=== PATIENT | male | born 1970 | race Caucasian/White ===

== ENCOUNTER → 2024-03-07 06:24 | Day surgery (SDC) | payer BC, SELFPAY | LOC: GI 06:24 | PROVIDERS: ATTENDING PHYSICIAN Surgery | DX: Z12.11 Encounter for screening for malignant neoplasm of colon (principal); K64.9 Unspecified hemorrhoids | CPT/HCPCS: 46221; G0121 ==

== ENCOUNTER → 2024-09-25 06:21 | Day surgery (SDC) | payer BC, SELFPAY ==
[2024-09-08 08:54] LABS: Hematocrit 45.4 % (39.0-52.0); Hemoglobin 15.1 g/dL (13.0-18.0); Mean Corp Hgb Conc. 33.3 g/dL (33.0-37.0); Mean Corpuscular Hgb 28.1 pg (27.0-31.0); Mean Corpuscular Volume 84.5 fL (80.0-94.0); Mean Platelet Volume 9.4 fL (7.4-10.4); Platelet Count 252 10^3/uL (130-400); Red Blood Cell Count 5.37 10^6/uL (4.70-6.10); Red Cell Dist. Width 13.8 % (11.5-14.5); White Blood Cell Count 6.4 10^3/uL (4.8-10.8)
[2024-09-08 09:30] VITALS: BMI 36.3
[2024-09-08 10:50] LABS: Blood Urea Nitrogen 17 mg/dl (9-20); Calcium 9.4 mg/dl (8.4-10.2); Carbon Dioxide 29 mmol/L (22-30); Chloride 104 mmol/L (98-107); Estimated Creatinine Clearance 120 ml/min; Glucose 82 mg/dl (70-99); Sodium 144 mmol/L (135-145); eGFR > 60.00
[2024-09-25] VITALS (9 sets, daily range): BP systolic 92–137; BP diastolic 51–81; BMI 36.3
[2024-09-25] MEDS: TYLENOL 1000 MG PO (12:51)
[2024-09-25] MEDS: VANCOCIN 530 MG IV (13:08)
--- NOTE | 2024-09-25 13:57 | HP.FOC2 ---
Focused History & Physical
Chief Complaint
HPI:
Chief Complaint: Umbilical hernia
HPI / Indication for Planned Procedure: Patient is a 54-year-old male recently seen in outpatient surgical evaluation secondary to a longstanding history of swelling in the region of his umbilicus. It has been present for 5 years or even longer and
progressively increased in size to the point that is now always protuberant. He has an awareness of the hernia being present and occasional ache in the area. No symptoms suggestive of intermittent incarceration of there is obstruction or
strangulation. Presents today for scheduled operative correction.
Relevant Past Medical History: Other (Hypertension, PACs, prior history of atrial fibrillation now status post cardiac ablation, vasovagal with near syncope)
Relevant Social History: Negative
Relevant Family History: Negative
Relevant Past Surgical History: Positive for (Right tib-fib fracture repair, cardiac ablation)
Review of Systems
Review of Pertinent Systems: All Systems Negative
Medication
See Medication form for detailed medications: Yes
Medication List (including Herbals & OTC):
metoprolol succinate 25 mg tablet,extended release 24 hr 12.5 mg PO BID 06/23/23
aspirin 81 mg tablet,delayed release 81 mg PO DAILY 09/13/24
Medications Reviewed: Yes
Allergies and Reactions
Patient has Allergies: Yes
Noted Allergies and Reactions:
Allergy/AdvReac Type Severity Reaction Status Date / Time
Penicillins Allergy years ago Verified 09/25/24 12:49
Pertinent Physical Exam
All Other Systems: Negative
Head/Neck: Normal
Lungs: Normal
Heart: Normal
Abdomen: Other (Soft, chronically incarcerated umbilical hernia, did not attempt to reduce. Fascial defect likely approximately 3 cm.)
Extremities: Normal
Neurological: Normal
Diagnosis / Assessment
54-year-old male presenting for scheduled operative correction symptomatic umbilical hernia
Plan / Procedure
robotic assisted laparoscopic repair umbilical hernia with mesh
Anesthesia/Sedation to be done by Anesthesia Provider: Yes
--- NOTE | 2024-09-25 14:00 | W.SUR.PREOP ---
Pre-Operative Surgical Note
-
I have examined this patient prior to the performance of the scheduled procedure.
The patient's condition is unchanged from the time of the current History and
Physical and the patient is able to undergo the scheduled procedure.
--- NOTE | 2024-09-25 17:07 | W.IMMPOSTOP ---
Addendum entered and electronically signed by Og Holly MD 09/25/24 17:22:
#[id number]
Original Note:
Surgical Immed Post Op Note
-
Primary Surgeon: Elayne
Assisting Surgeon: Rashida Pereira PA-C
Pre-op Diagnosis: Umbilical hernia
Post-op Diagnosis: Chronically incarcerated umbilical hernia; 3 cm
Procedure Performed: Robotic assisted laparoscopic repair umbilical hernia with mesh; 15 cm x [address]
Anesthesia Type: GETA +0.25% Marcaine
Specimen / Cultures: None
Estimated Blood Loss: 8 mL
Complications: None immediate
Operative Findings: Chronically incarcerated umbilical hernia containing omentum but without strangulation. Omental contents reduced. Transabdominal preperitoneal repair however peritoneal lining underlying rectus muscle particularly attenuated
therefore underlay coated mesh utilized for repair -Ventralight ST 15 cm x 10 cm. Fascial defect closed with 0 PDS STRATAFIX spiral. Mesh sutured to the linea alba and posterior sheath with numerous interrupted 2-0 Vicryl circumferentially and
centrally. Peritoneal flap closed with 2-0 Monocryl STRATAFIX spiral suture with vast majority of mesh having peritoneal coverage.
The assistance of Rashida Pereira PA-C was required due to the complexity of the procedure. During the procedure Rashida Pereira PA-C assisted with port placement, robotic instrumentation and suture material exchanges, and closure of the surgical incision
sites. I was present for the entirety of the operative procedure.
[2024-09-25] MEDS: DILAUDID 0.25 MG IV (17:26)
== END | disposition home or self-care (01) ==
LOC: SDS 06:21
PROVIDERS: ATTENDING PHYSICIAN Surgery; FAMILY PHYSICIAN Family Medicine
DX: K42.0 Umbilical hernia with obstruction, without gangrene (principal)
CPT/HCPCS: 49594; 36415; 80048; 85027; C1713

== ENCOUNTER 2024-09-30 10:48 | Emergency (ER) | payer BC, SELFPAY ==
[2024-09-30 10:50] VITALS: BP 128/89
--- NOTE | 2024-09-30 11:30 | ED.GENMED ---
History of Present Illness
General
Chief Complaint: Post Operative Problem(s)
Source: patient
Exam Limitations: none
Time Seen by Provider: 09/30/24 11:13
Nursing documentation reviewed up to this point in time: agreed with
History of Present Illness
History of Present Illness:
pt is a 54 y/o M with h/o afib,
s/p umbilical hernia repair 09/25/[address] frye
here with rash on his abdomen around his incision sites
pt says he woke up POD #1 and had small dots on his abdomen and a little pink around the umbilical incision and his LLQ incision; this was faint pink and he thought it was from the dressing
he removed the dressing
it has become very red, itchy around each incision which was glued with skin glue.
pt has never had any problem with tape or adhesives before
he called the education reviewer surgeon last night who prescribed bactrim and he took 1 dose yesterday and 1 dose today
pt says this morning he noticed some blistering within the rednesss around his umbilical incision and extension of the redness drawn around the line
pt has no pain, nausea, vomiting, diarrhea, fever/chills, oral lesions, genital lesions
Past History
Past History
ED Past Medical History: Arrthythmia and HTN
ED Past Surgical History: None
Social History
Tobacco: Non-smoker
Alcohol: Occasional
Drug: None
Personal:
Living: with family
Family History
Family History: Other (Father with hypertension, mother with diabetes)
Review of Systems
Review of Systems
Allergies reviewed?: Yes
All Other Systems: Not applicable
Phy Exam
Physical Exam
Physical Exam:
GENERAL: Alert , in no apparent distress
EYE: pupils equal and reactive
NECK: Supple
ENT: o/p clr, mmm.
CARDIAC: Regular rate and rhythm .
LUNGS: Clear breath sounds bilaterally, no acute respiratory distress, no wheezes/rales/rhonchi
ABDOMEN: Soft, without focal tenderness, no r/g, no cvat, normal bowel sounds
NEUROLOGICAL: Alert and oriented, no focal neuro deficits
SKIN: Warm and dry,
pt has an umbilical incision and 4 L sided incisions that are closed, with skin glue; surrounding the umbilical incisiont there is a 5 cm area of square shaped erythema, fairly red; with 1 bullae/blister in the lower margin; the other 4 incisions
have minimal 1-2 cm surrounding eryhthema, again very erythematous
and he has erythematous papules all over scattered his abdomen
no other rash on arms/legs
MUSCULOSKELETAL: No edema, well perfused. neg gustavo's sign
PSYCH: Normal and appropriate interaction.
Course
Orders/Labs/Results
Orders:
Orders
09/30/24 11:33
Complete Blood Count/With Diff Urgent
Comprehensive Metabolic Panel Urgent
Diphenhydramine [Benadryl] 50 mg PO NOW STA
09/30/24 11:36
Diphenhydramine [Benadryl] 50 mg IV NOW STA
09/30/24 12:43
Prednisone [Deltasone] 50 mg PO NOW STA
Abnormal Lab Results
09/30/24
11:33
Absolute Monos (auto) 0.8 H 10^3/uL
(0.1-0.6)
Monocytes % 10.9 H %
(1.7-9.3)
BUN 22 H mg/dl
(9-20)
09/30/24 11:33
09/30/24 11:33
Vital Signs
Initial and Last Documented VS:
Initial Vital Signs
Temp Pulse Resp BP Pulse Ox
98.1 F 88 22 128/89 98
09/30/24 10:50 09/30/24 10:50 09/30/24 10:50 09/30/24 10:50 09/30/24 10:50
Last Documented Vital Signs
Temp Pulse Resp BP Pulse Ox
98.2 F 73 18 148/89 98
09/30/24 11:33 09/30/24 11:33 09/30/24 11:33 09/30/24 11:33 09/30/24 11:33
MDM/Problems Addressed
Differential Diagnosis Includes:
contact dermatitis, allergic reaction, less likely serum sickness, SJS
MDM/Problems Addressed:
54 y/o M s/p umbilical hernia repair a fe wdyas ago
started the following day with mild erythema around the incision sites specifically umbilical arlen papular rash on his abdomen that was itchy
he presumed from shaving his abdomen hair
the itchiness and redness have worsened
he started abx yesterday bactrim and had 2 doses
but the rash was already present prior ot the bactrim
no fever
no pain
well appearing
afebrile
papular erythematous rash to abdomen no where else
and then around each insision he has marked erythematous skin, maximum 5 cm around the umcilical inciison; the others much smaller
certainly looks like allergy probqaboyl to adhesive glue?
d/w surgery, sent pictures
dr. leo agreed
recommended steroids, benadryl
will continue abx
considered changing to keflex but pt doesn't want to chance pcn allergy
wbc normal
return precautions.
*Critical Care Note
Total Time (30-74mins, 75-104mins- exclusive of procedures): Not Applicable
ED Attending Note
-
Portions of this chart may have been created with voice recognition software.� Occasional wrong word or��sound alike� substitutions may have occurred due to the inherent limitations of voice recognition software.
Discharge Plan
Departure
Patient Disposition: Home (Routine Discharge)
Date of Disposition: 09/30/24
Time of Disposition: 13:09
Patient with high blood pressure during this ER visit?: No
Condition: Fair
Discharge Problem:
Contact dermatitis
Instructions: Dermatitis ( Contact )
Prescriptions:
New
prednisone 10 mg Tablet
See Rx Instructions .ROUTE .COMPLEX Qty: 30 0RF
Rx Instructions:
Take By Mouth:
40 mg daily x3 days, 30 mg daily x3 days,
20 mg daily x3 days, 10 mg daily x3 days.
No Action
metoprolol succinate 25 mg Tablet Extended Release 24 Hr
12.5 mg PO BID
aspirin 81 mg Tablet,Delayed Release (Dr/Ec)
81 mg PO DAILY
acetaminophen [Tylenol Extra Strength] 500 mg tablet
1,000 mg PO Q6HPRN PRN (Reason: mild pain) Qty: 1 0RF
ibuprofen 200 mg tablet
400 mg PO Q6HPRN PRN (Reason: moderate pain) Qty: 1 0RF
polyethylene glycol 3350 [Miralax] 17 gram/dose powder
4 g PO DAILY PRN (Reason: Constipation) Qty: 119 0RF
Rx Instructions:
start a laxative such as MIRALAX on day 2 after surgery if no bowel movement yet as long as no nausea/vomiting and passing gas
oxycodone 5 mg tablet
5 mg PO Q4HPRN PRN (Reason: breakthrough/severe pain) Qty: 10 0RF
Referrals:
Rafa Braden DO [Family Provider] - Follow up in 2-3 days
Activity Restrictions/Additional Instructions:
THE REDNESS ON YOUR ABDOMEN APPEARS LIKE AN ALLERGIC REACTION
I SPOKE WITH DR. LEO RACK PUSHER FOR DR. FRYE WHO AGREED
LETS HAVE YOU STOP THE BACTRIM AND START KEFLEX INSTEAD 4 TIMES A DAY JUST IN [facility] THERE IS A COMPONENT OF INFECTION.
BUT ALSO TAKE PREDNISONE 40 MG ONCE A DAY FOR 3 DAYS THEN 30 MG ONCE A DAY FOR 3 DAYS THEN 20 MG ONCE DAY FOR 3 DAYS THEN 10 MG ONCE A DAY FOR 3 DAYS.
TAKE BENADRYL 50 MG 3 TIMES A DAY FOR 2 DAYS THEN ONLY NEEDED
WATCH THE REDNESS
IF IT IS WORSE THEN YOU NEED TO BE CHECKED
ALSO YOU SHOULD CALL DR. FRYE ON WEDNESDAY TO HAVE AN APPOINTMENT FOR THIS TO HAVE A CHECKUP OF THE REDNESS.
RETURN FOR: SEVERE WORSENING REDNESS, FEVER, PAIN, VOMITING, TROUBLE BREATHING OR ANY CONCERNS.
Interventions
Interventions:
*Risk Screen - Suicide Last Done: 09/30/24 10:50
*General Assessment Last Done: 09/30/24 10:50
*Neglect/Abuse Screening Last Done: 09/30/24 10:50
ED- Fall Risk Assessment Last Done: 09/30/24 13:54
*Nursing Disposition Last Done: 09/30/24 13:54
ED-Skin Assessment Last Done: 09/30/24 11:55
Discharge Date and Time
Discharge Date/Time: 09/30/24 13:54
Print Language: NEPALESE
[2024-09-30 11:33] VITALS: BP 148/89; BMI 36.1
[2024-09-30] MEDS: BENADRYL 50 MG IV (11:38)
[2024-09-30 11:55] LABS: % Basophils 0.5 % (0-2); % Eosinophils 3.3 % (0-6); % Immature Granulocytes 0.3 % (0-0.5); % Lymphocytes 31.5 % (20.5-51.1); % Monocytes 10.9 % (1.7-9.3); % Neutrophils 53.5 % (42.2-75.2); Absolute Eosinophils 0.3 10^3/uL (0-0.7); Absolute Lymphocytes 2.4 10^3/uL (1.2-3.4); Absolute Monocytes 0.8 10^3/uL (0.1-0.6); Absolute Neutrophils 4.1 10^3/uL (1.4-6.5); Hematocrit 44.9 % (39.0-52.0); Mean Corp Hgb Conc. 33.4 g/dL (33.0-37.0); Mean Corpuscular Hgb 27.8 pg (27.0-31.0); Mean Corpuscular Volume 83.1 fL (80.0-94.0); Mean Platelet Volume 8.8 fL (7.4-10.4); Nucleated Red Blood Cells % 0 % (-); Platelet Count 284 10^3/uL (130-400); Red Cell Dist. Width 13.5 % (11.5-14.5); White Blood Cell Count 7.6 10^3/uL (4.8-10.8)
[2024-09-30 12:10] LABS: ALT (SGPT) 21 U/L (0-50); AST (SGOT) 21 U/L (17-59); Albumin 4.3 g/dl (3.5-5.0); Alkaline Phosphatase 58 U/L (38-126); Blood Urea Nitrogen 22 mg/dl (9-20); Calcium 9.8 mg/dl (8.4-10.2); Carbon Dioxide 27 mmol/L (22-30); Chloride 103 mmol/L (98-107); Estimated Creatinine Clearance 98 ml/min; Glucose 98 mg/dl (70-99); Potassium 4.7 mmol/L (3.5-5.1); Sodium 142 mmol/L (135-145); Total Bilirubin 0.5 mg/dl (0.2-1.3); Total Protein 6.8 g/dl (6.3-8.2); eGFR > 60.00
[2024-09-30] MEDS: DELTASONE 50 MG PO (12:58)
== END 2024-09-30 13:54 | disposition home or self-care (01) ==
LOC: EMR 10:48
PROVIDERS: Physician Assistant; EMERGENCY PHYSICIAN Student in an Organized Health Care Education/Training Program; FAMILY PHYSICIAN Family Medicine
DX: L25.9 Unspecified contact dermatitis, unspecified cause (principal); I48.91 Unspecified atrial fibrillation; I10 Essential (primary) hypertension; Z82.49 Family history of ischemic heart disease and other diseases of the circulatory system; Z83.3 Family history of diabetes mellitus
CPT/HCPCS: 99283; 96374; 80053; 85025

== ENCOUNTER → 2025-04-27 06:44 | Outpatient (REF) | payer BC, SELFPAY | LOC: RAD 06:44 | PROVIDERS: ATTENDING PHYSICIAN Radiology Diagnostic Radiology; FAMILY PHYSICIAN Family Medicine; REFERRING PHYSICIAN Surgery | DX: Z01.818 Encounter for other preprocedural examination (principal) | CPT/HCPCS: 70030 ==

== ENCOUNTER → 2025-04-30 08:32 | Outpatient (REF) | payer BC, SELFPAY | LOC: MRI 3T 08:32 | PROVIDERS: ATTENDING PHYSICIAN Surgery; FAMILY PHYSICIAN Family Medicine | DX: K60.50 Anorectal fistula, unspecified (principal) | CPT/HCPCS: 72197; A9575 ==

== ENCOUNTER 2025-06-09 16:06 | Emergency (ER) | payer BC, SELFPAY ==
[2025-06-09 16:09] VITALS: BP 143/90
[2025-06-09 16:40] VITALS: BMI 35.9
--- NOTE | 2025-06-09 16:56 | ED.GENMED ---
History of Present Illness
General
Chief Complaint: Male Genito-Urinary Symptoms
Source: patient
Exam Limitations: none
Time Seen by Provider: 06/09/25 16:26
Nursing documentation reviewed up to this point in time: agreed with
History of Present Illness
History of Present Illness:
Patient is a 55-year-old male with past medical history of A-fib, cardioversion hypertension who presents to the ER complaining of left testicle pain and swelling for the the past 2 days. Denies any difficulty urinating. Denies any abdominal pain
or back pain. Denies any injury or lifting. No prior history of urologic issues other than a UTI.
Past History
Past History
ED Past Medical History: Arrthythmia and HTN
ED Past Surgical History: None
Social History
Tobacco: Non-smoker
Alcohol: Occasional
Drug: None
Personal:
Living: with family
Family History
Family History: Other (Father with hypertension, mother with diabetes)
Phy Exam
General Physical Exam
General Presentation: no apparent distress
General age: appears stated age
General Skin: warm
General Habitus: normal
General Mental: alert
General Hydration: appears well hydrated
Gastrointestinal Exam
Gastrointestinal Exam: non tender and soft
Genitourinary Exam Male
Exam Male: circumcised and other (Left testicle mildly swollen mildly tender no palpable inguinal hernia)
Neurological Exam
Neurological Exam: alert and oriented x3
Musculoskeletal Exam
Musculoskeletal Exam: full ROM
Course
Orders/Labs/Results
Orders:
Orders
06/09/25 16:27
US Scrotum Urgent
Comment:
Reason For Exam: left testicle swelling
06/09/25 17:02
UA Reflex to Culture [Urinalysis Reflex To Culture] Urgent
Date Specimen was Collected: 06/09/25
Time Specimen was Collected: 16:29
06/09/25 21:46
Ciprofloxacin HCl [Cipro] 500 mg PO NOW STA
Vital Signs
Initial and Last Documented VS:
Initial Vital Signs
Temp Pulse Resp BP Pulse Ox
97.6 F 68 18 143/90 100
06/09/25 16:09 06/09/25 16:09 06/09/25 16:09 06/09/25 16:09 06/09/25 16:09
Last Documented Vital Signs
Temp Pulse Resp BP Pulse Ox
97.6 F 61 18 138/76 100
06/09/25 16:09 06/09/25 21:25 06/09/25 16:09 06/09/25 21:25 06/09/25 17:01
MDM/Problems Addressed
Differential Diagnosis Includes:
Not limited to epididymitis, UTI hernia
MDM/Problems Addressed:
Patient is a 55 male who present with left-sided testicle pain and discomfort for the past several days no UTI symptoms. Patient on exam has very minimal tenderness very minimal swelling urine is negative. He denies any fevers he is afebrile.
Ultrasound testicle shows normal blood flow mild increased blood flow to the left epididymis suggestive of mild left-sided epididymitis. Small bilateral hydroceles. Case reviewed ED physician will treat with Cipro with urology follow up
*Radiology
Radiology exam reviewed: radiology read reviewed
*Pulse Oximetry
SaO2: 100
Oxygen Mode of Delivery: Room air
Patient hypoxic: no
*Critical Care Note
Total Time (30-74mins, 75-104mins- exclusive of procedures): Not Applicable
ED Attending Note
-
Portions of this chart may have been created with voice recognition software.� Occasional wrong word or��sound alike� substitutions may have occurred due to the inherent limitations of voice recognition software.
Discharge Plan
Departure
Patient Disposition: Home (Routine Discharge)
Date of Disposition: 06/09/25
Time of Disposition: 21:50
Patient with high blood pressure during this ER visit?: Yes
Condition: Fair
Covid-19: Not Applicable
Discharge Problem:
Acute epididymitis
Instructions: Epididymitis and orchitis, BLOOD PRESSURE
Prescriptions:
New
ciprofloxacin HCl [Cipro] 500 mg tablet
500 mg PO BID Qty: 20 0RF
No Action
metoprolol succinate 25 mg Tablet Extended Release 24 Hr
12.5 mg PO BID
aspirin 81 mg Tablet,Delayed Release (Dr/Ec)
81 mg PO DAILY
acetaminophen [Tylenol Extra Strength] 500 mg tablet
1,000 mg PO Q6HPRN PRN (Reason: mild pain) Qty: 1 0RF
ibuprofen 200 mg tablet
400 mg PO Q6HPRN PRN (Reason: moderate pain) Qty: 1 0RF
polyethylene glycol 3350 [Miralax] 17 gram/dose powder
4 g PO DAILY PRN (Reason: Constipation) Qty: 119 0RF
Rx Instructions:
start a laxative such as MIRALAX on day 2 after surgery if no bowel movement yet as long as no nausea/vomiting and passing gas
oxycodone 5 mg tablet
5 mg PO Q4HPRN PRN (Reason: breakthrough/severe pain) Qty: 10 0RF
prednisone 10 mg Tablet
See Rx Instructions .ROUTE .COMPLEX Qty: 30 0RF
Rx Instructions:
Take By Mouth:
40 mg daily x3 days, 30 mg daily x3 days,
20 mg daily x3 days, 10 mg daily x3 days.
Referrals:
Dex Valderrama MD [Active, Urology]
UNKNOWN - PT DOES,NOT KNOW [Unknown Provider]
Activity Restrictions/Additional Instructions:
As discussed a prescription for Cipro was sent to pharmacy take as directed twice daily for the next 10 days. Please follow-up with urology soon as possible. Call Wednesday for an appointment. Return if any worsening of symptoms of increased pain
swelling fever chills or any further concerns
Interventions
Interventions:
*Risk Screen - Suicide Last Done: 06/09/25 16:13
*General Assessment Last Done: 06/09/25 16:40
*Neglect/Abuse Screening Last Done: 06/09/25 16:13
*ED- Fall Risk Assessment Last Done: 06/09/25 16:40
*ED COVID-19 Vaccine History Last Done: 06/09/25 16:40
*Nursing Disposition Last Done: 06/09/25 21:56
ED-Male Genitourinary Assessment Last Done: 06/09/25 16:42
Discharge Date and Time
Discharge Date/Time: 06/09/25 21:57
Print Language: [place]
[2025-06-09 17:18] LABS: Urine Character Clear (Clear)
[2025-06-09 21:25] VITALS: BP 138/76
[2025-06-09] MEDS: CIPRO 500 MG PO (21:50)
== END 2025-06-09 21:57 | disposition home or self-care (01) ==
LOC: EMR 16:06
PROVIDERS: Nurse Practitioner; EMERGENCY PHYSICIAN Emergency Medicine; FAMILY PHYSICIAN Family Medicine
DX: N45.1 Epididymitis (principal); I48.91 Unspecified atrial fibrillation; I10 Essential (primary) hypertension; Z82.49 Family history of ischemic heart disease and other diseases of the circulatory system; Z83.3 Family history of diabetes mellitus; Z87.440 Personal history of urinary (tract) infections
CPT/HCPCS: 99284; 76870; 81003; 93976

== ENCOUNTER 2025-09-19 06:22 | Day surgery (SDC) | payer BC, SELFPAY ==
[2025-09-19] VITALS (11 sets, daily range): BP systolic 67–141; BP diastolic 29–81; BMI 35.9
[2025-09-19] MEDS: NORMOSOL-R/PLASMALYTE-A 1000 IV (10:14)
[2025-09-19] MEDS: TYLENOL 1000 MG PO (10:14)
== END 2025-09-19 13:10 | disposition home or self-care (01) ==
LOC: SDS 06:22
PROVIDERS: ATTENDING PHYSICIAN Surgery
DX: L02.215 Cutaneous abscess of perineum (principal)
CPT/HCPCS: 11422; 88304